=== PATIENT | female | born 1950 | race Caucasian/White ===

== ENCOUNTER → 2018-11-14 | Outpatient (CLI) | payer MEDICARE, OTHER | END | disposition home or self-care (01) | LOC: PCVCCLINIC 12:55 | PROVIDERS: ATTEND Internal Medicine | DX: R94.39 Abnormal result of other cardiovascular function study (principal); I10 Essential (primary) hypertension; E78.00 Pure hypercholesterolemia, unspecified; I45.10 Unspecified right bundle-branch block; M35.00 Sjogren syndrome, unspecified; E11.9 Type 2 diabetes mellitus without complications; M14.679 Charcot's joint, unspecified ankle and foot; Z87.891 Personal history of nicotine dependence | CPT/HCPCS: G0463 ==